=== PATIENT | male | born 1970 | race Caucasian/White ===

== ENCOUNTER 2024-08-23 23:10 | Emergency (ER) | payer SELFPAY ==
[2024-08-24] MEDS ORDERED: Ketorolac Tromethamine 30 MG (1 mL) VIAL ONE (00:17)
[2024-08-24] MEDS ORDERED: Clindamycin 150 MG CAP ONE (00:40)
== END 2024-08-24 00:55 | disposition home or self-care (01) ==
LOC: ERS 23:10
DX: M70.41 Prepatellar bursitis, right knee (principal); I10 Essential (primary) hypertension
CPT/HCPCS: 96372; 99283; J1885